=== PATIENT | female | born 1970 | race Caucasian/White ===

== ENCOUNTER → 2024-07-01 | Outpatient (CLI) | payer MEDICAID, SELFPAY ==
--- NOTE | 2024-07-01 10:14 | XR_ITS ---
Examination: Right ankle 2 views Technique one AP lateral right ankle 2 views Exam date and time: July 01, 2024 1110 hours Comparison January 15, 2024 INDICATIONS: Postop ankle surgery 6 months ago. FINDINGS: Healed fracture distal fibular shaft with anatomic alignment Mild osteoarthritis tibiotalar joint No ankle dislocation IMPRESSION: Healed fracture distal fibular shaft with anatomic alignment
== END | disposition home or self-care (01) ==
LOC: CDIM 10:00
PROVIDERS: PCP Nurse Practitioner Family; Referring Provider Orthopaedic Surgery; Visit Provider Orthopaedic Surgery
DX: Z87.81 Personal history of (healed) traumatic fracture (principal)
CPT/HCPCS: 73600